=== PATIENT | female | born 1995 | race Caucasian/White ===

== ENCOUNTER 2019-12-06 19:31 | Emergency (ER) | payer BC ==
[2019-12-06] MEDS ORDERED: NA CHLORIDE 0.9% 1,000 ML ONE (21:06)
[2019-12-06 21:30] LABS: Urine Bacteria >50 /HPF (<20); Urine Culture Reflex Order NOT NEEDED; Urine RBC NONE SEEN /HPF (NONE SEEN)
--- NOTE | 2019-12-06 21:30 | RAD REPORT ---
EXAM DESCRIPTION: CT - CTHCSPWOC - 12/06/2019 9:19 pm CLINICAL HISTORY: Trauma, head and neck injury. syncope COMPARISON: No comparisons TECHNIQUE: Axial 5 mm thick images of the head were obtained. Axial 2 mm thick images of the cervical spine were obtained with sagittal and coronal reconstruction images generated and reviewed. All CT scans are performed using dose optimization technique as appropriate and may include automated exposure control or mA/KV adjustment according to patient size. FINDINGS: CT HEAD WITHOUT CONTRAST: No acute hemorrhage, hydrocephalus or extra-axial collection is identified.No areas of brain edema or midline shift. The paranasal sinuses and mastoids are clear.The calvarium is intact. CT CERVICAL SPINE WITHOUT CONTRAST: No fracture or subluxation.No prevertebral soft tissues swelling is identified. IMPRESSION: No acute intracranial or cervical spine findings.
[2019-12-06 21:31] LABS: Urine Amorphous Sediment 2+ /HPF (NONE SEEN); Urine Mucus 1+ /HPF (NONE SEEN)
[2019-12-06 21:43] LABS: Basophils % 0.6 % (0-1.3); Hematocrit 40.7 % (36.0-45.0); Lymphocytes % 18.9 % (15.3-44.8); MPV 10.6 fL (7.6-11.3); RBC Red Blood Cell Count 4.64 M/uL (3.86-4.86)
[2019-12-06 22:09] LABS: BUN Blood Urea Nitrogen 14 mg/dL (7-18); Bicarbonate 29 mmol/L (21-32); Glucose Level 99 mg/dL (74-106); Potassium 3.7 mmol/L (3.5-5.1); Sodium Level 141 mmol/L (136-145)
--- NOTE | 2019-12-06 22:51 | ER ---
Nurse's Notes [facility] Name: Evita Gold Age: 24 yrs Sex: Female : 1995 Arrival Date: 12/06/2019 Time: 19:35 Bed 23 Private MD: Diagnosis: Syncope and collapse;Urinary tract infection, site not specified;Dehydration Presentation: 12/05 20:00 Chief complaint: Patient states: Around 4am, I woke up and was making a bottle for my ca1 baby when I suddenly fell backward. I wasn't dizzy, I did not trip, I just fell flat out. I hit my head when I fell. I got up, cleaned up and and fell down again, hitting my head again on the floor. Went on my day today, but I have been having a really bad headache the whole day. Reports nausea, dizziness, and shakiness. Denies vomiting at this time. Denies LOC and use of blood thinners. Coronavirus screen: Proceed with normal triage. Patient denies a cough. Patient denies shortness of breath or difficulty breathing. Patient denies measured and/or subjective temperature greater than 100.4F prior to today's visit. Patient denies travel on a cruise ship or to a country the [facility] currently lists as an affected area. Patient denies contact with known and/or suspected case of COVID-19. Ebola Screen: Patient negative for fever greater than or equal to 101.5 degrees Fahrenheit, and additional compatible Ebola Virus Disease symptoms Patient denies exposure to infectious person. Patient denies travel to an Ebola-affected area in the 21 days before illness onset. No symptoms or risks identified at this time. Mechanism of Injury: resulted from a fall, from a standing position. Initial Sepsis Screen: Does the patient meet any 2 criteria? No. Patient's initial sepsis screen is negative. Does the patient have a suspected source of infection? No. Patient's initial sepsis screen is negative. Risk Assessment: Do you want to hurt yourself or someone else? Patient reports no desire to harm self or others. Onset of symptoms was December 06, 2019 at 04:00. 20:00 Method Of Arrival: Ambulatory ca1 20:00 Acuity: MERLIN 3 ca1 Triage Assessment: 20:22 General: Appears in no apparent distress. General: Behavior is calm, cooperative. Pain: ls4 Complains of pain in forehead Pain currently is 5 out of 10 on a pain scale. Neuro: No deficits noted. Level of Consciousness is awake, alert, obeys commands, Oriented to person, place, time, situation, Proof Inspector are equal bilaterally Moves all extremities. Gait is steady, Speech is normal, Facial symmetry appears normal, Pupils are PERRLA, Intact Reports headache frontal area, since morning. Cardiovascular: No deficits noted. Respiratory: No deficits noted. GI: No deficits noted. : No deficits noted. No signs and/or symptoms were reported regarding the genitourinary system. Derm: No deficits noted. No signs and/or symptoms reported regarding the dermatologic system. Musculoskeletal: No deficits noted. No signs and/or symptoms reported regarding the musculoskeletal system. Injury Description: Puncture NO VISIBLE OR PALPABLE INJURY. 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 - Social history:: Smoking status: Patient reports the use of cigarette tobacco products. Screenin:25 Abuse screen: Denies threats or abuse. Denies injuries from another. Nutritional ls4 screening: No deficits noted. Tuberculosis screening: No symptoms or risk factors identified. Fall Risk None identified. Assessment: 21:00 Reassessment: Patient appears in no apparent distress at this time. Patient and/or ls4 family updated on plan of care and expected duration. Pain level reassessed. Patient is alert, oriented x 3, equal unlabored respirations, skin warm/dry/pink. 22:00 Reassessment: Patient appears in no apparent distress at this time. Patient and/or ls4 family updated on plan of care and expected duration. Pain level reassessed. Patient is alert, oriented x 3, equal unlabored respirations, skin warm/dry/pink. Vital Signs: 20:00 BP 130 / 86; Pulse 93; Resp 17 S; Temp 97.5(TE); Pulse Ox 100% on R/A; Weight 88.45 kg ca1 (R); Height 5 ft. 4 in. (162.56 cm) (R); Pain 6/10; 21:56 BP 109 / 57 Supine; Pulse 55; Resp 14; Pulse Ox 100% on R/A; ls4 21:57 BP 114 / 73 Sitting; Pulse 80; Resp 14; Pulse Ox 100% ; ls4 21:58 BP 110 / 60 Standing; Pulse 62; Resp 14; Pulse Ox 100% on R/A; ls4 20:00 Body Mass Index 33.47 (88.45 kg, 162.56 cm) ca1 [place] Coma Score: 20:00 Eye Response: spontaneous(4). Verbal Response: oriented(5). Motor Response: obeys ca1 commands(6). Total: 15. ED Course: 19:35 Patient arrived in ED. ds1 20:07 Triage completed. ca1 20:09 Arm band placed on right wrist. ca1 20:25 Patient has correct armband on for positive identification. Bed in low position. Call ls4 light in reach. Side rails up X 1. child monitor on. Warm blanket given. 20:25 No provider procedures requiring assistance completed. Initial lab(s) drawn, by nj, ls4 sent to lab. Urine collected: clean catch specimen, clear, EKG done, by ED staff, reviewed by Bhanu Thakkar MD. Inserted saline lock: 20 gauge in right antecubital area, using aseptic technique. Patient maintains SpO2 saturation greater than 95% on room air. 20:26 Birdie Tam FNP-C is [facility]. snw 20:26 Bhanu Thakkar MD is Attending Physician. snw 20:28 Leslie Lowery, RUSSELL is Primary Nurse. ls4 21:18 CT Head C Spine In Process Unspecified. EDMS 21:18 CT completed. Patient tolerated procedure well. Patient moved back from CT. mw3 21:40 CBC with Diff Sent. ls4 23:15 IV discontinued, intact, bleeding controlled, No redness/swelling at site. Pressure ls4 dressing applied. Administered Medications: 21:21 Drug: NS 0.9% 1000 ml Route: IV; Rate: 125 ml/hr; Site: right antecubital; ls4 12/06 02:33 Follow up: IV Status: Completed infusion; IV Intake: 250ml ls4 12/05 22:54 Drug: Rocephin 1 grams Route: IV; Rate: calculated rate; Site: right antecubital; ls4 23:15 Follow up: Response: No adverse reaction ls4 Intake: 12/06 02:33 IV: 250ml; Total: 250ml. ls4 Outcome: 12/05 22:50 Discharge ordered by MD. castillo 23:17 Patient left the ED. ls4 23:17 Discharged to home ambulatory. ls4 23:17 Condition: good ls4 23:17 Discharge instructions given to patient, Instructed on discharge instructions, follow up and referral plans. medication usage, safety practices, Demonstrated understanding of instructions, follow-up care, medications, Prescriptions given X 1. Signatures: Dispatcher [employer] EDMS Birdie Tam, CUSHION MAT MAKER-C CUSHION MAT MAKER-Xuan Agrawal ds1 Loida Andersen mw3 Leslie Lowery RN RN ls4 Rosa Maria Wagner RN RN ca1 Corrections: (The following items were deleted from the chart) 23:03 22:46 Rocephin 1 grams IV at calculated rate in right antecubital ls4 ls4 23:46 23:17 Patient left the ED. ls4 ls4
--- NOTE | 2019-12-06 22:52 | EDPHYS ---
Physician Documentation [facility] Name: Evita Gold Age: 24 yrs Sex: Female : 1995 Arrival Date: 12/06/2019 Time: 19:35 Bed 23 Private MD: ED Physician Bhanu Thakkar HPI: 12/05 22:45 This 24 yrs old Female presents to ER via Ambulatory with complaints of Head snw Injury-Adult. 22:45 . snw 22:46 The patient has experienced syncope, collapsed. Onset: The symptoms/episode snw began/occurred suddenly, this morning. Duration: The patient has had multiple episodes, that last an unknown period of time. Context: the episode(s) was witnessed, by no one, occurred at home, occurred while the patient was getting up from bed, Just prior to the episode the patient experienced no apparent symptoms. Associated signs and symptoms: Pertinent positives: headache, nausea, shakiness. Current symptoms: shaky, tearful. The patient has not experienced similar symptoms in the past. started thyroid supplementation lately. Pt has been taking dietary stimulant as well. . Pt has a 6 mo old and he awoke her crying. Pt jumped up to get him a bottle and as she was making it fell to occiput on the floor. Pt without loss of consciousness. Went to feed her Son and fell again. Pt states she is nauseated, no vomiting, shaky, and is concerned for concussion . WELFARE ADVISER: 20:00 LMP N/A - control method ca1 Historical: - Allergies: 20:09 No Known Allergies; ca1 - Home Meds: 20:09 phentermine 37.5 mg oral cap 1 cap once daily [Active]; levothyroxine 100 mcg tab 1 tab ca1 once daily [Active]; - PMHx: 20:09 Thyroid problem; ca1 - PSHx: 20:09 ; ca1 - Immunization history:: Adult Immunizations up to date, Flu vaccine is up to date. - Social history:: Smoking status: Patient reports the use of cigarette tobacco products. ROS: 22:45 Constitutional: Negative for fever, chills, and weight loss, Eyes: Negative for injury, snw pain, redness, and discharge, ENT: Negative for injury, pain, and discharge, Neck: Negative for injury, pain, and swelling, Cardiovascular: Negative for chest pain, palpitations, and edema, Respiratory: Negative for shortness of breath, cough, wheezing, and pleuritic chest pain, Abdomen/GI: Negative for abdominal pain, nausea, vomiting, diarrhea, and constipation, Back: Negative for injury and pain, : Negative for injury, bleeding, discharge, and swelling, MS/Extremity: Negative for injury and deformity, Skin: Negative for injury, rash, and discoloration. 22:45 Neuro: Positive for syncope, tremor. Exam: 21:51 Constitutional: This is a well developed, well nourished patient who is awake, alert, snw and in no acute distress. Head/Face: Normocephalic, atraumatic. Eyes: Pupils equal round and reactive to light, extra-ocular motions intact. Lids and lashes normal. Conjunctiva and sclera are non-icteric and not injected. Cornea within normal limits. Periorbital areas with no swelling, redness, or edema. ENT: Nares patent. No nasal discharge, no septal abnormalities noted. Tympanic membranes are normal and external auditory canals are clear. Oropharynx with no redness, swelling, or masses, exudates, or evidence of obstruction, uvula midline. Mucous membranes moist. Neck: Trachea midline, no thyromegaly or masses palpated, and no cervical lymphadenopathy. Supple, full range of motion without nuchal rigidity, or vertebral point tenderness. No Meningismus. Chest/axilla: Normal chest wall appearance and motion. Nontender with no deformity. No lesions are appreciated. Cardiovascular: Regular rate and rhythm with a normal S1 and S2. No gallops, murmurs, or rubs. Normal PMI, no JVD. No pulse deficits. Respiratory: Lungs have equal breath sounds bilaterally, clear to auscultation and percussion. No rales, rhonchi or wheezes noted. No increased work of breathing, no retractions or nasal flaring. Abdomen/GI: Soft, non-tender, with normal bowel sounds. No distension or tympany. No guarding or rebound. No evidence of tenderness throughout. Back: No spinal tenderness. No costovertebral tenderness. Full range of motion. Skin: Warm, dry with normal turgor. Normal color with no rashes, no lesions, and no evidence of cellulitis. MS/ Extremity: Pulses equal, no cyanosis. Neurovascular intact. Full, normal range of motion. Neuro: Awake and alert, GCS 15, oriented to person, place, time, and situation. Cranial nerves II-XII grossly intact. Motor strength 5/5 in all extremities. Sensory grossly intact. Cerebellar exam normal. Normal gait. 21:51 ECG was reviewed by the Attending Physician. 21:51 Psych: Affect is tearful, pt appears fearful. Oriented to person, place, time. Vital Signs: 20:00 BP 130 / 86; Pulse 93; Resp 17 S; Temp 97.5(TE); Pulse Ox 100% on R/A; Weight 88.45 kg ca1 (R); Height 5 ft. 4 in. (162.56 cm) (R); Pain 6/10; 21:56 BP 109 / 57 Supine; Pulse 55; Resp 14; Pulse Ox 100% on R/A; ls4 21:57 BP 114 / 73 Sitting; Pulse 80; Resp 14; Pulse Ox 100% ; ls4 21:58 BP 110 / 60 Standing; Pulse 62; Resp 14; Pulse Ox 100% on R/A; ls4 20:00 Body Mass Index 33.47 (88.45 kg, 162.56 cm) ca1 [place] Coma Score: 20:00 Eye Response: spontaneous(4). Verbal Response: oriented(5). Motor Response: obeys ca1 commands(6). Total: 15. MDM: 20:51 Patient medically screened. snw 22:52 ECG was reviewed by the Attending Physician. Data reviewed: vital signs, nurses notes. snw Data interpreted: Pulse oximetry: on room air is 100 %. Interpretation: normal. Counseling: I had a detailed discussion with the patient and/or guardian regarding: the historical points, exam findings, and any diagnostic results supporting the discharge/admit diagnosis, lab results, radiology results, the need for outpatient follow up, to return to the emergency department if symptoms worsen or persist or if there are any questions or concerns that arise at home. Special discussion: Based on the patient's history, exam and DX evaluation, there is no indication for emergent intervention or inpatient TX. It is understood by the patient/guardian that if the SXs persist or worsen they need to return immediately for re-evaluation. Based on the history and exam findings, there is no indication for further emergent testing or inpatient evaluation. I discussed with the patient/guardian the need to see the primary care provider for further evaluation of the symptoms. 12/05 20:53 Order name: CBC with Diff snw 12/05 20:53 Order name: Chem 7; Complete Time: 22:12 snw 12/05 20:53 Order name: TSH; Complete Time: 22:12 snw 12/05 20:53 Order name: Urine Culture snw 12/05 20:53 Order name: Urine Microscopic Only; Complete Time: 21:34 snw 12/05 20:53 Order name: CBC with Automated Diff; Complete Time: 21:50 EDMS 12/05 20:53 Order name: Urine Test (obtain specimen); Complete Time: 21:21 snw 12/05 20:53 Order name: Urine Dipstick-Ancillary (obtain specimen); Complete Time: 21:21 snw 12/05 20:53 Order name: Orthostatics; Complete Time: 21:40 snw 12/05 20:53 Order name: CT Head C Spine; Complete Time: 21:34 snw 12/05 20:53 Order name: EKG; Complete Time: 20:53 snw 12/05 20:53 Order name: EKG - Nurse/Tech; Complete Time: 21:21 snw EC:51 Rhythm is regular. QRS [place] is Normal. HI interval is normal. QRS interval is normal. snw QT interval is normal. No Q waves. T waves are Normal. Administered Medications: 21:21 Drug: NS 0.9% 1000 ml Route: IV; Rate: 125 ml/hr; Site: right antecubital; [facility] 12/06 02:33 Follow up: IV Status: Completed infusion; IV Intake: 250ml [facility] 12/05 22:54 Drug: Rocephin 1 grams Route: IV; Rate: calculated rate; Site: right antecubital; [facility] 23:15 Follow up: Response: No adverse reaction 4 Disposition: 12/06 06:33 Co-signature as Attending Physician, Bhanu Thakkar MD I agree with the assessment and [facility] plan of care. Disposition: 12/06/19 22:50 Discharged to Home. Impression: Syncope and collapse, Urinary tract infection, site not specified, Dehydration. - Condition is Stable. - Discharge Instructions: Dehydration, Adult, Syncope, Urinary Tract Infection, Adult. - Prescriptions for Augmentin 875- 125 mg Oral Tablet - take 1 tablet by ORAL route every 12 hours for 10 days; 20 tablet. - Medication Reconciliation Form, Thank You Letter, Antibiotic Education, Prescription Opioid Use form. - Follow up: Emergency Department; When: As needed; Reason: Worsening of condition. Follow up: Private Physician; When: 2 - 3 days; Reason: Recheck today's complaints, Continuance of care, Re-evaluation by your physician. Signatures: Dispatcher [employer] EDPA Birdie Tam, YADY-C RN CARE MANAGER-Bhanu Bennett MD MD tw4 Leslie Lowery RN RN ls4 Rosa Maria Wagner RN RN ca1 Corrections: (The following items were deleted from the chart) 12/05 23:17 22:50 12/06/2019 22:50 Discharged to Home. Impression: Syncope and collapse; Urinary ls4 tract infection, site not specified; Dehydration. Condition is Stable. Forms are Medication Reconciliation Form, Thank You Letter, Antibiotic Education, Prescription Opioid Use. Follow up: Emergency Department; When: As needed; Reason: Worsening of condition. Follow up: Private Physician; When: 2 - 3 days; Reason: Recheck today's complaints, Continuance of care, Re-evaluation by your physician. snw
[2019-12-06] MEDS ORDERED: CEFTRIAXONE/SWI 1gm 1 GM/10 ML SYR ONE (23:01)
[2019-12-06 23:56] VITALS: TEMP 98
[2019-12-06 23:59] VITALS: O2SAT 100
[2019-12-07 00:39] VITALS: BP 110/60
--- NOTE | 2019-12-07 16:49 | EKG ---
Test Date: 2019-12-06 Test Time: 21:12:26 Associate Professor Of Music: MARKIES MEASUREMENT RESULTS: Intervals: Rate: 67 NH: 124 QRSD: 88 QT: 406 QTc: 429 [place]: P: 38 NH: 124 QRS: 45 T: 53 INTERPRETIVE STATEMENTS: Normal sinus rhythm with sinus arrhythmia Normal ECG No previous ECG available for comparison Electronically Signed On 12-07-19 16:47:27 CDT by Julien Remy
== END 2019-12-06 23:17 | disposition home or self-care (01) ==
LOC: ER 19:31
DX: E86.0 Dehydration (principal); N39.0 Urinary tract infection, site not specified; F17.210 Nicotine dependence, cigarettes, uncomplicated; E07.9 Disorder of thyroid, unspecified; W19.XXXA Unspecified fall, initial encounter; Y93.89 Activity, other specified; Y92.9 Unspecified place or not applicable
CPT/HCPCS: 96361; 93005; 87088; 85025; 87086; 80048; 36415; 84443; 81015; 70450; 72125; 96374; 99285; J0696; J7030